=== PATIENT | female | born 1950 | race African-American/Black ===

== ENCOUNTER 2017-11-22 18:02 | Emergency (ER) | payer OTHER ==
[~2017-11-22] VITALS: Ht 167.6 cm; Wt 92.5 kg
[~2017-11-22 18:02] MED LIST: AMLODIPINE BESY10 MG PO; ASPIR 8181 MG PO; ASTEPRO205.5 MCG/ NS; ATENOLOL 100MG100 M2 PO; BENICAR40 MG PO; CLARITIN10 M2 PO; FLONASE 0.05%50 MCG NASAL; FLONASE NS; GARCINIA CAMBO1 EACH PO; HYDROCHLOROTHIA25 M1 PO; HYDROCODON-ACE1 EAC5 PO; MULTIVITAMINS PO; PROAIR HFA8.5 GM IH; ZANTAC 150MG T150 M1 PO
[2017-11-22] MEDS ORDERED: HYDROCODONE-AP1 EAC6 PO (19:42)
[2017-11-22 19:58] VITALS: BP 180/70
== END 2017-11-22 19:58 | disposition home or self-care (01) ==
LOC: ER 18:02
DX: S83.91XA Sprain of unspecified site of right knee, initial encounter (principal); I10 Essential (primary) hypertension; J45.909 Unspecified asthma, uncomplicated; W01.0XXA Fall on same level from slipping, tripping and stumbling without subsequent striking against object, initial encounter; Y93.89 Activity, other specified; Y92.89 Other specified places as the place of occurrence of the external cause; Y99.8 Other external cause status

== ENCOUNTER → 2018-09-12 | Outpatient (CLI) | payer OTHER ==
[~2018-09-12] MED LIST changes: +HYDROCODONE-AP1 EAC6 PO
== END ==
LOC: RAD 08:45
DX: J45.40 Moderate persistent asthma, uncomplicated (principal)

== ENCOUNTER → 2021-01-04 | Outpatient (CLI) | payer OTHER | LOC: BC 09:15 | PROVIDERS: ATTEND Family Medicine | DX: R92.8 Other abnormal and inconclusive findings on diagnostic imaging of breast (principal) ==

== ENCOUNTER → 2021-01-06 | Outpatient (CLI) | payer OTHER | LOC: RAD 12:10 | PROVIDERS: ATTEND Internal Medicine | DX: R06.00 Dyspnea, unspecified (principal); M25.78 Osteophyte, vertebrae ==

== ENCOUNTER → 2021-11-16 | Outpatient (CLI) | payer OTHER | LOC: CAT 11-15 09:57 | PROVIDERS: ATTEND Internal Medicine | DX: J32.9 Chronic sinusitis, unspecified (principal) ==